=== PATIENT | male | born 1945 | race Caucasian/White ===

== ENCOUNTER 2023-03-11 22:10 | Observation (INO) | payer MEDICARE, BC ==
[2023-03-11] MEDS ORDERED: HYDROmorphone 0.5 MG/0.5 ML SYRINGE IVP STA (22:27)
[2023-03-11] MEDS ORDERED: METOCLOPRAMIDE 5 MG/ML 2 ML VIAL IVP STA (22:27)
[2023-03-11] MEDS ORDERED: NALOXONE 0.4 MG/ML 1 ML VIAL IV PRN (22:46)
--- NOTE | 2023-03-11 22:46 | ED ---
Abdominal Pain HPI - General Chief Complaint: Abdominal Pain Stated Complaint: Urology consult Time Seen by Provider: 03/11/23 22:14 Source: EMS Mode of arrival: EMS Limitations: no limitations - History of Present Illness Initial Comments: Patient is a 77-year-old male presenting to the ER via EMS with a chief complaint of abdominal pain. Patient is a transfer from [place] for urology consult. Patient reports earlier today he started to have right flank and abdominal pain. Patient was seen at [place] and was found to have a 6 mm obstructing kidney stone. No history of stones. Patient states his pain currently is very low and he is comfortable. Patient denies any fevers, chills, night sweats, chest pain, shortness of breath, urinary complaints. - Related Data Allergies Allergy/AdvReac Type Severity Reaction Status Date / Time No Known Allergies Allergy Verified 03/11/23 23:02 Review of Systems ROS Statement: Those systems with pertinent positive or pertinent negative responses have been documented in the HPI. ROS Other: All systems not noted in ROS Statement are negative. Past Medical History Past Medical History: Hypertension Additional Past Surgical History / Comment(s): TURP 2005 Smoking Status: Former smoker Past Alcohol Use History: Occasional Past Drug Use History: None Reported General Exam Limitations: no limitations General appearance: alert, in no apparent distress Head exam: Present: atraumatic, normocephalic, normal inspection Respiratory exam: Present: normal lung sounds bilaterally. Absent: respiratory distress, wheezes, rales, rhonchi, stridor Cardiovascular Exam: Present: regular rate, normal rhythm, normal heart sounds. Absent: systolic murmur, diastolic murmur, rubs, gallop, clicks GI/Abdominal exam: Present: soft, normal bowel sounds. Absent: distended, tenderness, guarding, rebound, rigid Back exam: Present: normal inspection Neurological exam: Present: alert, oriented X3, CN II-XII intact Psychiatric exam: Present: normal affect, normal mood Skin exam: Present: warm, dry, intact, normal color. Absent: rash Course Vital Signs 03/11/23 22:14 Temperature 98.6 F Pulse Rate 97 Respiratory 18 Rate Blood Pressure 176/51 O2 Sat by Pulse 98 Oximetry - Reevaluation(s) Reevaluation #1: 03/11/23 22:44 Spoke with Kailey from [facility] accepted medical admission. Reevaluation #2: 03/11/23 23:[address] Saeed for urology consult. Medical Decision Making - Medical Decision Making Was pt. sent in by a medical professional or institution (, PA, SOLAR ELECTRIC PRACTITIONER, urgent care, hospital, or jail...) When possible be specific @ -Yes patient sent from [facility] for urology consult. Did you speak to anyone other than the patient for history (EMS, parent, family, police, friend...)? What history was obtained from this source @ -No Did you review nursing and triage notes (agree or disagree)? Why? @ -I reviewed and agree with nursing and triage notes Were old charts reviewed (outside hosp., previous admission, EMS record, old EKG, old radiological studies, urgent care reports/EKG's, jail records)? Report findings @ -Yes I reviewed ER visit from [facility]. CT performed showed a 6 mm obstructing right kidney stone with evidence of hydronephrosis. Labs obtained significant for WBC 7.7, BUN 23, Cr 1.5. Urinalysis showing trace blood without signs of infection. Patient received IV Toradol, Zofran, fluids prior to transfer. Differential Diagnosis (chest pain, altered mental status, abdominal pain women, abdominal pain men, vaginal bleeding, weakness, fever, dyspnea, syncope, headache, dizziness, GI bleed, back pain, seizure, CVA, palpatations, mental health, musculoskeletal)? @ -Differential Abdominal Pain Men:Appendicitis, cholecystitis, diverticulosis, ischemic bowel, pancreatitis, hepatitis, UTI, gastroenteritis, AAA, incarcerated hernia, bowel obstruction, constipation, inflammatory bowel, hepatitis, peptic ulcer disease, splenic infarction, perforated viscus, testicular torsion, this is not meant to be an all-inclusive list EKG interpreted by me (3pts min.). @ -None X-rays interpreted by me (1pt min.). @ -None done CT interpreted by me (1pt min.). @ -None done U/S interpreted by me (1pt. min.). @ -None done What testing was considered but not performed or refused? (CT, X-rays, U/S, labs)? Why? @ -None What meds were considered but not given or refused? Why? @ -None Did you discuss the management of the patient with other professionals (professionals i.e. , PA, SOLAR ELECTRIC PRACTITIONER, lab, RT, psych nurse, social media developer, benefits consulting analyst, teacher, rating officer, correctional counselor/case manager)? Give summary @ -Yes I discussed this case with Dr. Saeed on-call urology who accepted consult. Also spoke with Kailey from [facility] who accepted medical management. Was smoking cessation discussed for >3mins.? @ -No Was critical care preformed (if so, how long)? @ -No Were there social determinants of health that impacted care today? How? (Homelessness, low income, unemployed, alcoholism, drug addiction, transportation, low edu. Level, literacy, decrease access to med. care, alf, rehab)? @ -No Was there de-escalation of care discussed even if they declined (Discuss DNR or withdrawal of care, Hospice)? DNR status @ -No What co-morbidities impacted this encounter? (DM, HTN, Smoking, COPD, CAD, Cancer, CVA, ARF, Chemo, Hep., AIDS, mental health diagnosis, sleep apnea, morbid obesity)? @ -Hypertension Was patient admitted / discharged? Hospital course, mention meds given and route, prescriptions, significant lab abnormalities, going to OR and other pertinent info. @ -Admitted. Patient is 77-year-old male presented to the ER from [facility] for urology consult. Patient was seen in [place] with a chief complaint of right-sided flank and abdominal pain. CT performed at [place] showing 6 mm obstructing right kidney stone with evidence of hydronephrosis. Labs obtained at [place] significant for white blood cell count 7.7, BUN 23, creatinine 1.5. Urinalysis showing trace blood without signs of infection. Upon arrival into [facility], patient vitals were stable and in no signs of acute distress. History and physical exam were completed. Patient states he had very little pain and he stated he was comfortable. Labs pending. I discussed this case with Dr. Saeed on-call urology who accepted consult. Also spoke with Kailey from [facility] who accepted medical management. Disposition discussed with patient. Patient will be admitted in stable condition for further care and treatment. Patient in agreement with care plan. Undiagnosed new problem with uncertain prognosis? @ -No Drug Therapy requiring intensive monitoring for toxicity (Heparin, Nitro, Insulin, Cardizem)? @ -No Were any procedures done? @ -No Diagnosis/symptom? @ -Nephrolithiasis/ANAIS/hydronephrosis Acute, or Chronic, or Acute on Chronic? @ -Acute Uncomplicated (without systemic symptoms) or Complicated (systemic symptoms)? @ -Complicated Side effects of treatment? @ -No Exacerbation, Progression, or Severe Exacerbation? @ -No Poses a threat to life or bodily function? How? (Chest pain, [place], [place], pneumonia, PE, COPD, DKA, ARF, appy, cholecystitis, CVA, Diverticulitis, Homicidal, Suicidal, threat to staff... and all critical care pts) @ -No - Radiology Data Radiology results: report reviewed (from [place]), image reviewed (from [place]) Disposition Clinical Impression: Nephrolithiasis, Acute kidney injury, Hydronephrosis concurrent with and due to calculi of kidney and ureter Disposition: ADMITTED IP TO THIS [facility] Condition: Fair Referrals: Etienne Dixon MD [Primary Care Provider] - 1-2 days Time of Disposition: 22:46
[2023-03-11] MEDS: SODIUM CHLORIDE 0.9% 1,000 ML IV SCH (23:10)
[2023-03-11 23:35] LABS: HCT 43.8 % (39.0-53.0); HGB 14.9 gm/dL (13.0-17.5); MCH 30.8 pg (25.0-35.0); MCV 90.8 fL (80.0-100.0); Mean Platelet Volume 7.5; Platelet Count 135 k/uL (150-450); RBC 4.82 m/uL (4.30-5.90); RDW 13.2 % (11.5-15.5); WBC 8.1 k/uL (3.8-10.6)
[2023-03-11 23:44] LABS: Appearance,Urine Clear (Clear); Bilirubin,Urine Negative (Negative); Blood,Urine Trace (Negative); Color,Urine Light Yellow; Glucose,Urine (UA) Negative (Negative); Ketones,Urine Negative (Negative); Leukocyte Esterase,Urine Negative (Negative); Mucus,Urine Rare /hpf; Nitrite,Urine Negative (Negative); Protein,Urine Negative (Negative); RBC,Urine 19 /hpf (0-5); Specific Gravity,Urine 1.027 (1.001-1.035); Urobilinogen,Urine <2.0 mg/dL (<2.0); WBC,Urine 1 /hpf (0-5)
[2023-03-11 23:50] LABS: ALT 21 U/L (4-49); AST 24 U/L (17-59); African American GFR (CKD) 65 (>60 ml/min/1.73 sqM); Albumin 3.8 g/dL (3.5-5.0); Alkaline Phosphatase 86 U/L (38-126); Anion Gap 4 mmol/L; Blood Urea Nitrogen 20 mg/dL (9-20); Calcium 9.2 mg/dL (8.4-10.2); Carbon Dioxide 26 mmol/L (22-30); Chloride 110 mmol/L (98-107); Glucose 107 mg/dL (74-99); Non-African American GFR(CKD) 56 (>60 ml/min/1.73 sqM); Potassium 4.7 mmol/L (3.5-5.1); Sodium 140 mmol/L (137-145); Total Bilirubin 0.6 mg/dL (0.2-1.3); Total Protein 6.3 g/dL (6.3-8.2)
[2023-03-12] MEDS ORDERED: ACETAMINOPHEN TAB 325 MG TAB PO PRN ×2 (06:53→07:06)
[2023-03-12] MEDS ORDERED: KETOROLAC 15 MG/ML 1 ML VIAL IVP SCH (07:00)
[2023-03-12] MEDS ORDERED: KETOROLAC 15 MG/ML 1 ML VIAL IVP PRN (07:01)
[2023-03-12 07:50] VITALS: BP 149/72; PULSE 72; RESP 16; TEMP 97.8
[2023-03-12] MEDS ORDERED: lisinopriL 5 MG TAB PO SCH (09:00)
[2023-03-12] MEDS: SODIUM CHLORIDE 0.9% 1,000 ML IV SCH (09:01)
--- NOTE | 2023-03-12 10:27 | P.GSCN ---
History of Present Illness Consult date: 03/12/23 History of present illness: 77 yo male transferred from [facility] with a 6 mm right ureteral calculous and colic. This is his first stone. He is comfortable now. There are no signs of infection. He is otherwise healthy. He has not had previous stones. He has not had any pain since last night in [place]. There is been no fever or chills. He is not nauseated. He is having some pressure down in the bladder region consistent with a distal ureteral stone. Review of Systems All systems: negative - Constitutional Denies fever, Denies weight loss - EENT Eyes: denies blurred vision Ears, nose, mouth and throat: Denies dysphagia - Cardiovascular Denies chest pain, Denies shortness of breath - Respiratory Denies cough, Denies 7 - Gastrointestinal Reports as per HPI - Genitourinary Denies dysuria, Denies hematuria - Integumentary Denies rash, Denies unusual bruising - Neurological Denies headaches, Denies syncope - Hematologic/Lymphatic Denies easy bleeding, Denies easy bruising Past Medical History Past Medical History: Hypertension History of Any Multi-Drug Resistant Organisms: None Reported Additional Past Surgical History / Comment(s): JOSEP 2005 Smoking Status: Former smoker Past Alcohol Use History: Occasional Past Drug Use History: None Reported Medications and Allergies Allergies Allergy/AdvReac Type Severity Reaction Status Date / Time No Known Allergies Allergy Verified 03/11/23 23:02 Surgical - Exam Vital Signs Temp Pulse Resp BP Pulse Ox 98.6 F 97 18 176/51 98 03/11/23 22:14 03/11/23 22:14 03/11/23 22:14 03/11/23 22:14 03/11/23 22:14 - General well developed, well nourished, no distress - Eyes normal ocular movement, no icteric - ENT no hearing loss, no congestion - Neck no masses, trachea midline - Respiratory normal respiratory effort, clear to auscultation - Abdomen Abdomen: soft, non tender, no guarding, no rigid, no rebound - Integumentary no rash, no abnormal pigmentation - Neurologic no disoriented, no combative - Psychiatric oriented to time, oriented to person, oriented to place, speech is normal, memory intact Results - Labs 03/11/23 22:54 03/11/23 22:54 Abnormal Lab Results - Last 24 Hours (Table) 03/11/23 03/11/23 03/11/23 Range/Units 22:54 22:54 22:54 Plt Count 135 L (150-450) k/uL Chloride 110 H (98-107) mmol/L Glucose 107 H (74-99) mg/dL Urine Blood Trace H (Negative) Urine RBC 19 H (0-5) /hpf Urine Mucus Rare H (None) /hpf Diabetes panel 03/11/23 Range/Units 22:54 Sodium 140 (137-145) mmol/L Potassium 4.7 (3.5-5.1) mmol/L Chloride 110 H (98-107) mmol/L Carbon Dioxide 26 (22-30) mmol/L BUN 20 (9-20) mg/dL Creatinine 1.25 (0.66-1.25) mg/dL Glucose 107 H (74-99) mg/dL Calcium 9.2 (8.4-10.2) mg/dL AST 24 (17-59) U/L ALT 21 (4-49) U/L Alkaline Phosphatase 86 (38-126) U/L Total Protein 6.3 (6.3-8.2) g/dL Albumin 3.8 (3.5-5.0) g/dL Calcium panel 03/11/23 Range/Units 22:54 Calcium 9.2 (8.4-10.2) mg/dL Albumin 3.8 (3.5-5.0) g/dL Pituitary panel 03/11/23 Range/Units 22:54 Sodium 140 (137-145) mmol/L Potassium 4.7 (3.5-5.1) mmol/L Chloride 110 H (98-107) mmol/L Carbon Dioxide 26 (22-30) mmol/L BUN 20 (9-20) mg/dL Creatinine 1.25 (0.66-1.25) mg/dL Glucose 107 H (74-99) mg/dL Calcium 9.2 (8.4-10.2) mg/dL Adrenal panel 03/11/23 Range/Units 22:54 Sodium 140 (137-145) mmol/L Potassium 4.7 (3.5-5.1) mmol/L Chloride 110 H (98-107) mmol/L Carbon Dioxide 26 (22-30) mmol/L BUN 20 (9-20) mg/dL Creatinine 1.25 (0.66-1.25) mg/dL Glucose 107 H (74-99) mg/dL Calcium 9.2 (8.4-10.2) mg/dL Total Bilirubin 0.6 (0.2-1.3) mg/dL AST 24 (17-59) U/L ALT 21 (4-49) U/L Alkaline Phosphatase 86 (38-126) U/L Total Protein 6.3 (6.3-8.2) g/dL Albumin 3.8 (3.5-5.0) g/dL Assessment and Plan Assessment: Impression: right ureteral calculous with obstruction. Recommendations: The patient has a 6 mm distal stone on the right side. He is been given options of treatment including spontaneous passage versus intervention. He is been feeling well ever since [place]. He was told in [place] that this is an emergency however explained to him that it is not. He is made the stone passage most of the way and could pass it on his own. We discussed treatment options and the plan is for him to try to pass this spontaneously with the understanding of the pain returns he can contact us and we can reassess. He'll be discharged home with [place] and Flomax. He'll follow my office next week. His condition is good. He understands this.
--- NOTE | 2023-03-12 19:19 | P.HPIM ---
History of Present Illness H&P Date: 03/12/23 Chief Complaint: Abdominal pain 77-year-old male presenting to the ER via EMS with a chief complaint of abdominal pain. Patient is a transfer from [place] for urology consult. Patient reports earlier today he started to have right flank and abdominal pain. Patient was seen at [place] and was found to have a 6 mm obstructing kidney stone. No history of stones. Patient states his pain currently is very low and he is comfortable. Patient denies any fevers, chills, night sweats, chest pain, shortness of breath, urinary complaints. Labs obtained at [place] significant for white blood cell count 7.7, BUN 23, creatinine 1.5. Urinalysis showing trace blood without signs of infection. Upon arrival into [facility], patient vitals were stable and in no signs of acute distress. CT performed at [place] showing 6 mm obstructing right kidney stone with e vidence of hydronephrosis. Review of Systems REVIEW OF SYSTEMS: CONSTITUTIONAL: No fever, no malaise, no fatigue. HEENT: No recent visual problems or hearing problems. Denied any sore throat. CARDIOVASCULAR: No chest pain, orthopnea, PND, no palpitations, no syncope. PULMONARY: No shortness of breath, no cough, no hemoptysis. GASTROINTESTINAL: No diarrhea, no nausea, no vomiting, no abdominal pain. NEUROLOGICAL: No headaches, no weakness, no numbness. HEMATOLOGICAL: Denies any bleeding or petechiae. GENITOURINARY: Denies any burning micturition, frequency, or urgency. MUSCULOSKELETAL/RHEUMATOLOGICAL: Denies any joint pain, swelling, or any muscle pain. ENDOCRINE: Denies any polyuria or polydipsia. The rest of the 14-point review of systems is negative. Past Medical History Past Medical History: Hypertension History of Any Multi-Drug Resistant Organisms: None Reported Additional Past Surgical History / Comment(s): TURP 2005 Smoking Status: Former smoker Past Alcohol Use History: Occasional Past Drug Use History: None Reported Medications and Allergies Home Medications Medication Instructions Recorded Confirmed Type Ascorbic Acid [Vitamin C] 1,000 mg PO DAILY 03/12/23 03/12/23 History Cholecalciferol [Vitamin D3 (25 25 mcg PO DAILY 03/12/23 03/12/23 History Mcg = 1000 Iu)] HYDROcodone/APAP 5-325MG [[place] 1 tab PO Q4HR PRN #14 tab 03/12/23 Rx 5-325] Minocycline HCl [Minocin] 100 mg PO DAILY 03/12/23 03/12/23 History Tamsulosin [Flomax] 0.4 mg PO DAILY #10 cap 03/12/23 Rx lisinopriL [Zestril] 5 mg PO DAILY 30 Days #30 tab 03/12/23 Rx Allergies Allergy/AdvReac Type Severity Reaction Status Date / Time No Known Allergies Allergy Verified 03/12/23 12:16 Physical Exam Vitals: Vital Signs Temp Pulse Pulse Resp BP BP Pulse Ox 03/12/23 09:01 72 16 03/12/23 06:56 97.8 F 72 16 149/72 99 03/12/23 02:01 97.9 F 18 152/77 98 03/12/23 01:04 82 16 145/75 98 03/11/23 22:14 98.6 F 97 18 176/51 98 Intake and Output 03/11/23 03/12/23 03/12/23 22:59 06:59 14:59 Other: Voiding Method Toilet Toilet # Voids 1 Weight 86.183 kg 86.183 kg Limitations: no limitations General appearance: alert, in no apparent distress Head exam: Present: atraumatic, normocephalic, normal inspection Respiratory exam: Present: normal lung sounds bilaterally. Absent: respiratory distress, wheezes, rales, rhonchi, stridor Cardiovascular Exam: Present: regular rate, normal rhythm, normal heart sounds. Absent: systolic murmur, diastolic murmur, rubs, gallop, clicks GI/Abdominal exam: Present: soft, normal bowel sounds. Absent: distended, tenderness, guarding, rebound, rigid Back exam: Present: normal inspection Neurological exam: Present: alert, oriented X3, CN II-XII intact Psychiatric exam: Present: normal affect, normal mood Skin exam: Present: warm, dry, intact, normal color. Absent: rash Results CBC & Chem 7: 03/11/23 22:54 03/11/23 22:54 Labs: Abnormal Lab Results - Last 24 Hours (Table) 03/11/23 03/11/23 03/11/23 Range/Units 22:54 22:54 22:54 Plt Count 135 L (150-450) k/uL Chloride 110 H (98-107) mmol/L Glucose 107 H (74-99) mg/dL Urine Blood Trace H (Negative) Urine RBC 19 H (0-5) /hpf Urine Mucus Rare H (None) /hpf Thrombosis Risk Factor Assmnt - Choose All That Apply Any of the Below Risk Factors Present?: No Assessment and Plan Assessment: 1. Obstructive uropathy; CT of the abdomen completed at outside facility revea led 6 mm obstructing right renal stone without evidence of hydronephrosis --Patient has been made n.p.o.; IV fluid hydration; pain control -Urology is consulted- 2. Acute renal injury; BUNs/creatinine elevated at 23/1.5; patient has been treated with IV fluid hydration; monitor strict ANU's, daily weights, renal function electrolytes -Avoid nephrotoxins and hypotension 3. Uncontrolled hypertension; blood pressure has been markedly elevated; patient is supposed to be on oral antihypertensive therapy; agreeable to Norvasc 5 mg daily 4. Vitamin D deficiency; continue home supplement DVT prophylaxis; SCDs CODE STATUS; full code
== END 2023-03-12 12:17 | disposition home or self-care (01) ==
LOC: EC 22:10 → 4SSUR 22:51
PROVIDERS: ADMIT Hospitalist; ATTEND Hospitalist
DX: N20.0 Calculus of kidney (principal); N17.9 Acute kidney failure, unspecified; I10 Essential (primary) hypertension; E55.9 Vitamin D deficiency, unspecified; Z87.891 Personal history of nicotine dependence; Z79.899 Other long term (current) drug therapy
CPT/HCPCS: 96374; 96375; 99284; 80053; 83605; 85027; 81001; G0378 ×2; J2765; J1170

== ENCOUNTER 2023-03-23 08:28 | Day surgery (SDC) | payer MEDICARE, BC ==
[2023-03-22 16:15] VITALS: BMI 25.7
--- NOTE | 2023-03-23 08:54 | XR ---
EXAMINATION TYPE: XR KUB DATE OF EXAM: 03/23/2023 8:44 AM CLINICAL INDICATION:Male, 77 years old with history of KUB ON ADMISSION; COMPARISON: 03/11/2023. TECHNIQUE: One radiographic view of the abdomen was obtained. FINDINGS: The bowel gas pattern is nonspecific without dilated loops of small or large bowel. There i s no evidence for organomegaly or pneumoperitoneum. The osseous structures obstructing calculus on t he right renal collecting system seen on prior CT is not well appreciated on radiography. Fecal mater ial and gas are demonstrated throughout the colon and rectum. The level degeneration changes of the spine. Mild scoliosis changes picture scoliosis apex L2 possibly related to patient positioning. IMPRESSION: Obstructive calculus seen on CT not well appreciated. On radiography.
[2023-03-23] MEDS ORDERED: HYDROmorphone 0.5 MG/0.5 ML SYRINGE IVP PRN (09:41)
[2023-03-23] MEDS: ONDANSETRON 4 MG/2 ML VIAL IVP ONE (10:21)
[2023-03-23] MEDS: DEXAMETHASONE SOD PHOSPHATE 4 MG/ML 1 ML VIAL IV ONE (10:21)
[2023-03-23] MEDS: LACTATED RINGERS 1,000 ML IV SCH (10:21)
[2023-03-23] MEDS ORDERED: ePHEDrine 50 MG/ML 1 ML VIAL ONE (13:27)
[2023-03-23] MEDS ORDERED: PROPOFOL 10 MG/ML 20 ML VIAL IV ONE (13:27)
[2023-03-23] MEDS ORDERED: KETOROLAC 15 MG/ML 1 ML VIAL ONE (13:27)
[2023-03-23] MEDS ORDERED: PHENYLEPHRINE-0.9% NACL SYG 1,000 MCG/10 ML SYRINGE ONE (13:27)
[2023-03-23] MEDS ORDERED: LIDOCAINE 1% INJ 10MG/ML (20 ML MDV) ONE (13:27)
[2023-03-23] MEDS ORDERED: fentaNYL (PF) 50 MCG/ML 2 ML AMP ONE (13:27)
[2023-03-23] MEDS: IOPAMIDOL-370 100ML BTL INJ ONE (13:58)
[2023-03-23] MEDS: LACTATED RINGERS 1,000 ML IV ONE (14:13)
--- NOTE | 2023-03-23 14:36 | P.OP ---
Date of Procedure: 03/23/23 Preoperative Diagnosis: Right ureteral stone with obstruction Postoperative Diagnosis: Same Procedure(s) Performed: Cystoscopy, right ureteroscopy with laser lithotripsy, placement of 626 stent Anesthesia: KRANTHIA Surgeon: Sameer Saeed Estimated Blood Loss (ml): 10 Pathology: none sent Condition: stable Disposition: PACU Indications for Procedure: Patient is 77. He is been attempting to pass a 6 mm stone on the right side for the last couple weeks. He was in the office earlier in the week with persistent colic. Come for a right ureteroscopy laser lithotripsy the stone was not obviously seen on KUB Description of Procedure: Patient brought operating suite. Given general anesthesia. Placed lithotomy position with sterile prep and drape. Cystoscopy Foroblique lens and 21-Mexican sheath identifies previous TURP. The bladder wall shows smaller ureteral orifice ease. The bladder mucosa is unremarkable. Within a cone-tipped catheter the right ureteral orifice is dilated. I passed the right ureteral catheter up to where the stone is just above the SI joint overlying the spine. I attempted to pass the rigid ureteroscope up to the stone but it is quite inflamed distal to the stone. I then pass an 035 wire alongside the stone up into the collecting system. Over the wire that I then pass a 4-12-Mexican dilating balloon. Area of edema is dilated. I'm then able to over the wire pass a semirigid ureteroscope up to the stone. Through the same go past the 275 laser probe up to the stone and break it up into tiny fragments. Airway the stone was impacted is very edematous endodontic assistant will be placed. I removed the ureteroscope and then backloaded the wire onto the cystoscope. Over the wires and passed a 6 x 26 double-J catheter that coils in the right renal pelvis and in the bladder. the bladder is drained the patient is awake and returned recovery room good condition. He tolerated the procedure well and will be discharged home upon recovery and follow in the office for cystoscopy and stent removal
[2023-03-23 14:49] VITALS: TEMP 97
[2023-03-23] MEDS: HYDROmorphone 0.5 MG/0.5 ML SYRINGE IVP ONE ×2 (15:01→15:07)
[2023-03-23 15:50] VITALS: RESP 20
[2023-03-23 16:20] VITALS: BP 148/78; PULSE 100
--- NOTE | 2023-03-23 16:30 | FL ---
EXAMINATION TYPE: FL guidance operating room Intraoperative/procedural fluoroscopic services were pro vided. Total fluoroscopy time is 2 minutes 23 seconds with a total of 3 submitted images to PACS. Ple ase see the operative/procedural note for further details. DAP: 16.586 Gycm2
--- NOTE | 2023-03-24 14:18 | P.GSHP ---
History of Present Illness H&P Date: 03/22/23 77-year-old gentleman recently in the hospital upon transfer from [place] for a right ureteral calculus. I the time he got to [facility] his pain was gone. He was observed in the hospital overnight to make sure the pain subsided and it did. He was given treatment options of spontaneous passage versus manipulation. He chose the option to try to pass this. Over the last week however he is still having intermittent colic and the right lower quadrant and suprapubic range consistent with a stone still being in the distal ureter. We discussed treatment options and he wishes something to be done. He comes for right ureteroscopy and laser lithotripsy. - Constitutional Constitutional: Denies chills, Denies fever - EENT Eyes: denies blurred vision, denies pain Ears, nose, mouth and throat: Denies headache, Denies sore throat - Cardiovascular Cardiovascular: Denies chest pain, Denies shortness of breath - Respiratory Respiratory: Denies cough, Denies 7 - Gastrointestinal Gastrointestinal: Denies abdominal pain, Denies diarrhea, Denies nausea, Denies vomiting - Genitourinary (Female) Genitourinary: Denies dysuria, Denies hematuria - Genitourinary (Male) Genitourinary: Denies dysuria, Denies hematuria - Musculoskeletal Musculoskeletal: Denies myalgias - Integumentary Integumentary: Denies pruritus, Denies rash - Neurological Neurological: Denies numbness, Denies weakness - Psychiatric Psychiatric: Denies anxiety, Denies depression - Endocrine Endocrine: Denies fatigue, Denies weight change Past Medical History Past Medical History: Hypertension History of Any Multi-Drug Resistant Organisms: None Reported Additional Past Surgical History / Comment(s): TURP 2005 Smoking Status: Former smoker Past Alcohol Use History: Occasional Past Drug Use History: None Reported Medications and Allergies Home Medications Medication Instructions Recorded Confirmed Type Ascorbic Acid [Vitamin C] 1,000 mg PO DAILY 03/12/23 03/23/23 History Cholecalciferol [Vitamin D3 (25 25 mcg PO DAILY 03/12/23 03/23/23 History Mcg = 1000 Iu)] HYDROcodone/APAP 5-325MG [[place] 1 tab PO Q4HR PRN #14 tab 03/12/23 03/23/23 Rx 5-325] Minocycline HCl [Minocin] 100 mg PO DAILY 03/12/23 03/23/23 History Tamsulosin [Flomax] 0.4 mg PO QAM 03/22/23 03/23/23 History lisinopriL [Zestril] 5 mg PO QAM 03/22/23 03/23/23 History Allergies Allergy/AdvReac Type Severity Reaction Status Date / Time No Known Allergies Allergy Verified 03/23/23 09:55 Surgical - Exam Vital Signs Temp Pulse Resp BP Pulse Ox 98.6 F 97 18 176/51 98 03/11/23 22:14 03/11/23 22:14 03/11/23 22:14 03/11/23 22:14 03/11/23 22:14 - General well developed, well nourished, no distress - Eyes normal ocular movement, no icteric - ENT no hearing loss, no congestion - Neck no masses, trachea midline - Respiratory normal respiratory effort, clear to auscultation - Abdomen Abdomen: soft, non tender, no guarding, no rigid, no rebound - Integumentary no rash, no abnormal pigmentation - Neurologic no disoriented, no combative - Psychiatric oriented to time, oriented to person, oriented to place, speech is normal, memory intact Results - Imaging CT scan - abdomen: report reviewed CT scan - pelvis: report reviewed Assessment and Plan Assessment: Impression: Right ureteral stone, distal with persistent colic Recommendations: Right ureteroscopy with laser lithotripsy, possible stent
== END 2023-03-23 16:24 | disposition home or self-care (01) ==
LOC: OR 08:28
PROVIDERS: ATTEND Urology
DX: N20.1 Calculus of ureter (principal); I10 Essential (primary) hypertension; F10.90 Alcohol use, unspecified, uncomplicated; Z87.891 Personal history of nicotine dependence; Z79.899 Other long term (current) drug therapy
CPT/HCPCS: 74018; 52356; C2625; C1758; C1769; J1100; J0690; J2405; J2001; J3010; J1885; J2704; J1170; Q9967; J2371